=== PATIENT | male | born 1960 | race Caucasian/White ===

== ENCOUNTER 2017-05-23 00:02 | Inpatient (IN) | payer BC ==
[~2017-05-23] VITALS: Ht 177.8 cm; Wt 106.5 kg
[2017-05-23 00:59] LABS: Basophils # (auto) 0.1 uL; Basophils % (auto) 1.4 % (0.0-2.0); Eosinophils # (auto) 0.1 uL; Eosinophils % (auto) 1.6 % (0.0-7.0); Hematocrit 31.3 % (41.0-53.0); Hemoglobin 10.2 g/dL (13.5-17.5); Lymphocytes # (auto) 0.5 uL; Lymphocytes % (auto) 10.1 % (10.0-50.0); Mean Corpuscular Hemoglobin 27.7 pg (28.0-32.0); Mean Corpuscular Hgb Conc. 32.7 g/dL (32.0-36.0); Mean Corpuscular Volume 84.7 fL (80.0-100.0); Mean Platelet Volume 7.7 fL (6.9-10.8); Monocytes # (auto) 0.4 uL; Monocytes % (auto) 7.8 % (0.0-12.0); Neutrophils # (auto) 3.9 uL; Neutrophils % (auto) 79.1 % (37.0-80.0); Nucleated Red Blood Cells % 0.1 %; Platelet Count (auto) 128 10^3/uL (140-450); White Blood Cell 4.9 10^3/uL (4.4-10.8)
[2017-05-23 01:00] LABS: Red Cell Distribution Width 21.3 % (11.8-14.3)
[2017-05-23 01:12] LABS: Albumin 3.3 g/dL (3.4-5.0); BUN/Creatinine Ratio 23.1; Calcium 8.5 mg/dL (8.5-10.1); Potassium 3.7 mmol/L (3.5-5.1)
[2017-05-23 01:13] LABS: Salicylate < 1.7 mg/dL (2.8-20.0)
[2017-05-23 01:17] LABS: Bilirubin, Total 0.3 mg/dL (0.2-1.0); Total Protein 7.6 g/dL (6.4-8.2)
[2017-05-23 01:19] LABS: Acetaminophen < 2.0 ug/mL (10-30)
[2017-05-23 01:24] LABS: Platelet Estimate Decreased
[2017-05-23 01:25] LABS: Anisocytosis Slight; Ovalocytes FEW
[2017-05-23] MEDS ORDERED: ASPirin 325 MG TAB PO ONE (01:45)
[2017-05-23] MEDS ORDERED: ENOXAPARIN SOD 100 MG/1 ML SYRINGE SC ONE (02:00)
[2017-05-23] MEDS ORDERED: ONDANSETRON HCL 4 MG/2 ML VIAL IV PRN (03:15)
[2017-05-23] MEDS ORDERED: NITROGLYCERIN 0.4 MG SL TAB SL PRN (03:15)
[2017-05-23] MEDS ORDERED: TEMAZEPAM 15 MG CAP PO PRN (03:15)
[2017-05-23] MEDS ORDERED: MORPHINE SULFATE 10 MG/ML INJ 1ML SDV IV PRN (03:15)
[2017-05-23] MEDS: CARVEDILOL 12.5 MG TAB PO SCH ×2 (10:00→22:00)
[2017-05-23] MEDS ORDERED: LISINOPRIL 5 MG TAB PO SCH (10:00)
[2017-05-23] MEDS: FAMOTIDINE 20 MG TAB PO SCH ×2 (10:00→22:40)
[2017-05-23] MEDS: DULoxetine HCL 30 MG CAP PO SCH (10:00)
[2017-05-23] MEDS: ENOXAPARIN SOD 40 MG/0.4 ML SYRINGE SC SCH (10:00)
[2017-05-23] MEDS ORDERED: ASPirin 81 mg TAB PO SCH (10:00)
[2017-05-23] MEDS: ALBUTEROL SULF 2.5 MG/0.5ML(0.5%) NEB SOLN NEB PRN (11:52)
[2017-05-23] MEDS ORDERED: THIAMINE HCL 100 MG TAB PO ONE (14:15)
[2017-05-23] MEDS ORDERED: ASPirin 81 mg TAB PO ONE (14:15)
[2017-05-23] MEDS ORDERED: MULTIPLE VITAMINS W/ MINERALS TAB PO ONE (14:15)
[2017-05-23] MEDS ORDERED: LISINOPRIL 5 MG TAB PO ONE (14:30)
[2017-05-23 14:47] VITALS: BP 145/82
[2017-05-23 16:37] VITALS: BP 135/87
[2017-05-23 22:00] VITALS: BP 135/74
[2017-05-23] MEDS ORDERED: ATORVASTATIN 20 MG TAB PO SCH (22:00)
[2017-05-23] MEDS: HYDROcodone-ACET 5/325MG TAB PO PRN (22:47)
[2017-05-24] VITALS (7 sets, daily range): BP systolic 126–146; BP diastolic 69–89
[2017-05-24] MEDS: ALBUTEROL SULF 2.5 MG/0.5ML(0.5%) NEB SOLN NEB PRN (07:11)
[2017-05-24 08:12] LABS: Basophils # (auto) 0 uL; Basophils % (auto) 0.7 % (0.0-2.0); Eosinophils # (auto) 0.1 uL; Eosinophils % (auto) 3.8 % (0.0-7.0); Hematocrit 30.7 % (41.0-53.0); Hemoglobin 10.1 g/dL (13.5-17.5); Lymphocytes # (auto) 0.6 uL; Lymphocytes % (auto) 19.1 % (10.0-50.0); Mean Corpuscular Hemoglobin 27.9 pg (28.0-32.0); Mean Corpuscular Volume 84.3 fL (80.0-100.0); Monocytes # (auto) 0.2 uL; Monocytes % (auto) 8.3 % (0.0-12.0); Neutrophils % (auto) 68.1 % (37.0-80.0); Platelet Count (auto) 101 10^3/uL (140-450)
[2017-05-24 08:26] LABS: Red Cell Distribution Width 20.9 % (11.8-14.3)
[2017-05-24 08:37] LABS: BUN/Creatinine Ratio 22.6; Bilirubin, Total 0.5 mg/dL (0.2-1.0); Calcium 8.9 mg/dL (8.5-10.1); Magnesium 1.8 mg/dL (1.6-2.6); Potassium 3.7 mmol/L (3.5-5.1)
[2017-05-24 08:38] LABS: B-Type Natriuretic Peptide 347.86 pg/mL (0-100)
[2017-05-24 08:58] LABS: Temperature: 22.9 C (20.0-25.0)
[2017-05-24] MEDS: LISINOPRIL 5 MG TAB PO SCH (09:38)
[2017-05-24] MEDS: MULTIPLE VITAMINS W/ MINERALS TAB PO SCH (09:39)
[2017-05-24] MEDS: DULoxetine HCL 30 MG CAP PO SCH (09:39)
[2017-05-24] MEDS: ASPirin 81 mg TAB PO SCH (09:39)
[2017-05-24] MEDS: ENOXAPARIN SOD 40 MG/0.4 ML SYRINGE SC SCH (09:40)
[2017-05-24] MEDS: THIAMINE HCL 100 MG TAB PO SCH (09:40)
[2017-05-24] MEDS ORDERED: ADENOSINE 86 MG in GIVE UN-DILUTED 0 ML IV ONE (09:45)
[2017-05-24] MEDS: CARVEDILOL 12.5 MG TAB PO SCH ×3 (09:46→21:53)
[2017-05-24] MEDS: FAMOTIDINE 20 MG TAB PO SCH ×2 (09:47→21:54)
[2017-05-24 10:43] LABS: Hepatitis B Surface Antibody Negative
[2017-05-24] MEDS ORDERED: IPRATROPIUM BROM 0.5 MG/2.5ML INH SOL ONE (10:45)
[2017-05-24] MEDS ORDERED: ALBUTEROL SULF 2.5 MG/0.5ML(0.5%) NEB SOLN ONE (10:45)
[2017-05-24] MEDS ORDERED: DULO60CA PO (11:16)
[2017-05-24] MEDS ORDERED: CYA100I IM (11:16)
[2017-05-24] MEDS ORDERED: IBUP800T24 PO (11:16)
[2017-05-24] MEDS ORDERED: OMEP20CA74 PO (11:16)
[2017-05-24] MEDS ORDERED: CAR125T PO (11:16)
[2017-05-24] MEDS ORDERED: FURO40TA PO (11:16)
[2017-05-24] MEDS ORDERED: MULT-228 PO (11:16)
[2017-05-24] MEDS ORDERED: ATOR40TA52 PO (11:16)
[2017-05-24] MEDS ORDERED: ASPI81TA27 PO (11:16)
[2017-05-24] MEDS ORDERED: LISI-711 PO (11:16)
[2017-05-24 11:22] LABS: Anisocytosis Slight; Ovalocytes FEW; Platelet Estimate Decreased
[2017-05-24] MEDS: HYDROcodone-ACET 5/325MG TAB PO PRN ×2 (13:33→21:56)
[2017-05-24] MEDS: ACETAMINOPHEN 325 MG TAB PO PRN (18:27)
[2017-05-25] MEDS ORDERED: chlordiazePOXIDE HCL 5 MG CAP PO ONE (01:15)
[2017-05-25] MEDS: FAMOTIDINE 20 MG TAB PO SCH ×3 (03:13→21:55)
[2017-05-25 05:08] VITALS: BP 130/74
[2017-05-25 09:00] VITALS: BP 152/91
[2017-05-25] MEDS: ENOXAPARIN SOD 40 MG/0.4 ML SYRINGE SC SCH (09:58)
[2017-05-25] MEDS: LISINOPRIL 5 MG TAB PO SCH (09:59)
[2017-05-25] MEDS: DULoxetine HCL 30 MG CAP PO SCH (10:00)
[2017-05-25] MEDS: MULTIPLE VITAMINS W/ MINERALS TAB PO SCH (10:00)
[2017-05-25] MEDS: ASPirin 81 mg TAB PO SCH (10:00)
[2017-05-25] MEDS: CARVEDILOL 12.5 MG TAB PO SCH ×2 (10:00→21:55)
[2017-05-25] MEDS: THIAMINE HCL 100 MG TAB PO SCH (10:01)
[2017-05-25] MEDS: ALBUTEROL SULF 2.5 MG/0.5ML(0.5%) NEB SOLN NEB PRN ×2 (10:21→19:25)
[2017-05-25 17:00] VITALS: BP 123/81
[2017-05-26] MEDS: HYDROcodone-ACET 5/325MG TAB PO PRN ×2 (01:55→15:04)
[2017-05-26 08:00] VITALS: BP 130/76
[2017-05-26 09:00] VITALS: BP 130/76
[2017-05-26] MEDS: CARVEDILOL 12.5 MG TAB PO SCH ×2 (10:00→22:36)
[2017-05-26] MEDS: THIAMINE HCL 100 MG TAB PO SCH (10:00)
[2017-05-26] MEDS: LISINOPRIL 5 MG TAB PO SCH (10:33)
[2017-05-26] MEDS: DULoxetine HCL 30 MG CAP PO SCH (10:33)
[2017-05-26] MEDS: FAMOTIDINE 20 MG TAB PO SCH ×2 (10:33→22:36)
[2017-05-26] MEDS: MULTIPLE VITAMINS W/ MINERALS TAB PO SCH (10:34)
[2017-05-26] MEDS: ASPirin 81 mg TAB PO SCH (10:34)
[2017-05-26] MEDS: ENOXAPARIN SOD 40 MG/0.4 ML SYRINGE SC SCH (10:35)
[2017-05-26 12:33] VITALS: BP 145/84
[2017-05-26] MEDS: ALBUTEROL SULF 2.5 MG/0.5ML(0.5%) NEB SOLN NEB PRN (14:25)
[2017-05-26 15:03] VITALS: BP 145/84
[2017-05-26 16:12] VITALS: BP 132/75
[2017-05-26 22:00] VITALS: BP 138/81
[2017-05-27] MEDS: HYDROcodone-ACET 5/325MG TAB PO PRN ×3 (01:58→23:47)
[2017-05-27 08:27] VITALS: BP 148/86
[2017-05-27] MEDS: ENOXAPARIN SOD 40 MG/0.4 ML SYRINGE SC SCH (10:34)
[2017-05-27] MEDS: MULTIPLE VITAMINS W/ MINERALS TAB PO SCH (10:34)
[2017-05-27] MEDS: LISINOPRIL 5 MG TAB PO SCH (10:35)
[2017-05-27] MEDS: DULoxetine HCL 30 MG CAP PO SCH (10:36)
[2017-05-27] MEDS: CARVEDILOL 12.5 MG TAB PO SCH ×2 (10:38→21:44)
[2017-05-27] MEDS: ASPirin 81 mg TAB PO SCH (10:38)
[2017-05-27] MEDS: FAMOTIDINE 20 MG TAB PO SCH ×2 (10:39→21:44)
[2017-05-27] MEDS: THIAMINE HCL 100 MG TAB PO SCH (10:40)
[2017-05-27 14:39] VITALS: BP 131/78
[2017-05-27 16:26] VITALS: BP 142/74
[2017-05-27] MEDS: ALBUTEROL SULF 2.5 MG/0.5ML(0.5%) NEB SOLN NEB PRN (19:50)
[2017-05-27 21:16] VITALS: BP 118/76
[2017-05-28 05:04] VITALS: BP 116/70
[2017-05-28 09:00] VITALS: BP 126/74
[2017-05-28] MEDS: CARVEDILOL 12.5 MG TAB PO SCH ×2 (10:00→21:51)
[2017-05-28] MEDS: ENOXAPARIN SOD 40 MG/0.4 ML SYRINGE SC SCH (10:47)
[2017-05-28] MEDS: MULTIPLE VITAMINS W/ MINERALS TAB PO SCH (10:48)
[2017-05-28] MEDS: LISINOPRIL 5 MG TAB PO SCH (10:48)
[2017-05-28] MEDS: THIAMINE HCL 100 MG TAB PO SCH (10:48)
[2017-05-28] MEDS: DULoxetine HCL 30 MG CAP PO SCH (10:49)
[2017-05-28] MEDS: FAMOTIDINE 20 MG TAB PO SCH ×2 (10:49→21:48)
[2017-05-28] MEDS: ASPirin 81 mg TAB PO SCH (10:49)
[2017-05-28 13:00] VITALS: BP 134/79
[2017-05-28] MEDS: ACETAMINOPHEN 325 MG TAB PO PRN (15:02)
[2017-05-28 17:00] VITALS: BP 123/74
[2017-05-28 22:43] VITALS: BP 128/79
[2017-05-29 04:55] VITALS: BP 115/72
[2017-05-29] MEDS: ALBUTEROL SULF 2.5 MG/0.5ML(0.5%) NEB SOLN NEB PRN (06:00)
[2017-05-29 09:00] VITALS: BP 120/86
[2017-05-29] MEDS: HYDROcodone-ACET 5/325MG TAB PO PRN ×2 (09:04→13:46)
[2017-05-29] MEDS: ASPirin 81 mg TAB PO SCH (10:04)
[2017-05-29] MEDS: MULTIPLE VITAMINS W/ MINERALS TAB PO SCH (10:04)
[2017-05-29] MEDS: DULoxetine HCL 30 MG CAP PO SCH (10:04)
[2017-05-29] MEDS: FAMOTIDINE 20 MG TAB PO SCH (10:04)
[2017-05-29] MEDS: CARVEDILOL 12.5 MG TAB PO SCH (10:06)
[2017-05-29] MEDS: ENOXAPARIN SOD 40 MG/0.4 ML SYRINGE SC SCH (10:07)
[2017-05-29] MEDS: THIAMINE HCL 100 MG TAB PO SCH (10:07)
[2017-05-29] MEDS: LISINOPRIL 5 MG TAB PO SCH (10:07)
[2017-05-29 16:45] VITALS: BP 130/76
== END 2017-05-29 17:30 | disposition home or self-care (01) | DRG 918 ==
LOC: ER 00:07 → TELE 00:08 → TELE-E-ADS 09:35 → TELE-EAST 11:54 → EAST 05-26 21:38
PROVIDERS: ADMIT Nurse Practitioner; ATTEND Internal Medicine
DX: T50.902A Poisoning by unspecified drugs, medicaments and biological substances, intentional self-harm, initial encounter (principal); R45.851 Suicidal ideations; I11.0 Hypertensive heart disease with heart failure; B19.10 Unspecified viral hepatitis B without hepatic coma; I50.9 Heart failure, unspecified; K76.0 Fatty (change of) liver, not elsewhere classified; F32.9 Major depressive disorder, single episode, unspecified; R07.9 Chest pain, unspecified; F10.10 Alcohol abuse, uncomplicated; F20.9 Schizophrenia, unspecified; J44.9 Chronic obstructive pulmonary disease, unspecified; Z59.0 Homelessness; Z95.0 Presence of cardiac pacemaker; Y92.89 Other specified places as the place of occurrence of the external cause; D63.8 Anemia in other chronic diseases classified elsewhere; F41.9 Anxiety disorder, unspecified
CPT/HCPCS: 36415; 71010; 76705; 78452; 80053; 80061; 80307; 80329; 83036; 83540; 83550; 83735; 83880; 84443; 84484; 85025; 86704; 86706; 86708; 86803; 87340; 93005; 93017; 93306; 94640; 94761; J0153